=== PATIENT | male | born 1945 | race Caucasian/White ===

== ENCOUNTER 2021-01-08 06:51 | Day surgery (SDC) | payer MEDICARE ==
[2021-01-07 09:18] LABS: ALBUMIN 3.7 g/dL (3.4-5.0); CALCIUM 9.3 mg/dL (8.5-10.1); CHLORIDE 107 mmol/L (98-107)
[2021-01-07 09:23] LABS: ALANINE AMINOTRANSFERASE 43 U/L (12-78); ALKALINE PHOSPHATASE 33 U/L (45-117); BILIRUBIN,TOTAL 1.5 mg/dL (0.2-1.0); CREATININE 1.05 mg/dL (0.7-1.3); TOTAL PROTEIN 7.3 g/dL (6.4-8.2)
[2021-01-07 09:38] LABS: ANION GAP 4 mmol/L (5-15)
[~2021-01-08] VITALS: Ht 182.9 cm; Wt 103.9 kg
[~2021-01-08 06:51] MED LIST: FLEC100T PO; LOSA100T2 PO; METO25TA35 PO; PITA4TAB2 PO
[2021-01-08 07:20] VITALS: BP 134/84
[2021-01-08] MEDS ORDERED: LACTATED RINGERS 1,000 ML IV SCH (07:30)
[2021-01-08] MEDS ORDERED: CHLORHEXIDINE 15 ML UDC PO ONE (07:30)
[2021-01-08] MEDS ORDERED: LIDOCAINE-MPF 2% ,5ML ONE (08:38)
[2021-01-08] MEDS ORDERED: PROPOFOL 50 ML ONE (08:38)
[2021-01-08] MEDS ORDERED: PROMETHAZINE 12.5 MG SUPP PR PRN (09:30)
[2021-01-08] MEDS ORDERED: MEPERIDINE/PF 25MG/0.5ML IVPush PRN (09:30)
[2021-01-08] MEDS ORDERED: MIDAZOLAM 1 MG/ML, 2ML IV PRN (09:30)
[2021-01-08] MEDS ORDERED: OXYcodone 5 MG/5 ML ORAL.SOL UDC PO PRN (09:30)
[2021-01-08] MEDS ORDERED: FENTANYL PF 100 MCG/2ML IV PRN (09:30)
[2021-01-08] MEDS ORDERED: EPHEDRINE 50 MG/ML, 1ML IVPush PRN (09:30)
[2021-01-08] MEDS ORDERED: ALBUTEROL SULFATE 2.5 MG/3 ML NPPB PRN (09:30)
[2021-01-08] MEDS ORDERED: DIPHENHYDRAMINE 50 MG/ML, 1ML IVPush PRN ×2 (09:30)
[2021-01-08] MEDS ORDERED: PROMETHAZINE 25 MG/ML, 1ML IVPush PRN (09:30)
[2021-01-08] MEDS ORDERED: hydrALAzine 20 MG/ML, 1ML IV PRN (09:30)
[2021-01-08] MEDS ORDERED: DIAZEPAM 5 MG/ML, 2ML IVPush PRN (09:30)
[2021-01-08] MEDS ORDERED: HYDROmorphone 1 MG/ML, 1ML INJ IVPush PRN (09:30)
[2021-01-08] MEDS ORDERED: ONDANSETRON 2MG/ML, 2ML IVPush PRN (09:30)
[2021-01-08] MEDS ORDERED: LABETALOL 5MG/ML, 20ML IV PRN (09:30)
== END 2021-01-08 09:50 | disposition home or self-care (01) ==
LOC: OUT 06:51
PROVIDERS: ATTEND Internal Medicine
DX: K62.89 Other specified diseases of anus and rectum (principal); K57.30 Diverticulosis of large intestine without perforation or abscess without bleeding; K21.9 Gastro-esophageal reflux disease without esophagitis; I10 Essential (primary) hypertension; Z20.822 Contact with and (suspected) exposure to COVID-19; Z79.82 Long term (current) use of aspirin; Z79.899 Other long term (current) drug therapy; Z87.442 Personal history of urinary calculi
CPT/HCPCS: 36415; 45341; 80053; 93005; J2704; J7120; U0003; U0005